=== PATIENT | female | born 1960 | race Caucasian/White ===

== ENCOUNTER 2016-11-01 07:46 | Outpatient (CLI) | payer OTHER | END 2016-11-01 07:47 | disposition home or self-care (01) | DX: Z00.00 Encounter for general adult medical examination without abnormal findings (principal); R25.2 Cramp and spasm ==

== ENCOUNTER 2017-01-16 10:13 | Outpatient (CLI) | payer OTHER ==
--- NOTE | 2017-01-21 17:05 | Mammography Report ---
DIGITAL SCREENING MAMMOGRAM: 01/16/2017 CLINICAL INDICATION: A 56-year-old for screening. COMPARISON: 09/2015, 07/2014, 04/2013. TECHNIQUE: Routine CC and MLO projections as well as bilateral laterally exaggerated craniocaudal vi ews were obtained of the breasts. The breasts demonstrate heterogeneously dense fibroglandular parenchyma bilaterally. Coarse and punc de jesus, typically benign calcifications are present. No suspicious masses, clustered microcalcificatio ns, or regions of architectural distortion are identified. IMPRESSION: BENIGN FINDINGS. RECOMMENDATION: ROUTINE ANNUAL SCREENING UNLESS OTHERWISE CLINICALLY INDICATED. BIRADS CATEGORY: 2, BENIGN FINDINGS. STANDARD QUALIFYING STATEMENTS 1. This examination was reviewed with the aid of Computed-Aided Detection (CAD). 2. A negative or benign imaging report should not delay biopsy if clinically suspicious findings are present. Consider surgical consultation if warranted. More than 5% of cancers are not identified b y imaging. 3. Dense breasts may obscure an underlying neoplasm. JOB #: [id number] EXT JOB #:[id number]
== END 2017-01-16 10:14 | disposition home or self-care (01) ==
LOC: DI.S 10:13
PROVIDERS: ATTEND Nurse Practitioner Obstetrics & Gynecology
DX: Z12.31 Encounter for screening mammogram for malignant neoplasm of breast (principal)
CPT/HCPCS: 77067

== ENCOUNTER 2021-08-16 12:59 | Outpatient (CLI) | payer OTHER ==
--- NOTE | 2021-08-20 11:12 | Mammography Report ---
BILATERAL DIGITAL SCREENING MAMMOGRAM 3D/2D: 08/16/2021 CLINICAL: Routine screening. Comparison is made to exams dated: 01/16/2017 mammogram, 10/11/2015 mammogram - [facility], 08/10/2014 mammogram, and 05/06/2013 mammogram - [facility]. The tissue of both breasts is predominantly fatty. No significant masses, calcifications, or other findings are seen in either breast. There has been no significant interval change. IMPRESSION: NEGATIVE There is no mammographic evidence of malignancy. A 1 year screening mammogram is recommended. This exam was interpreted at Station ID: [id number]. NOTE: For mammograms, a report in lay terms will be sent to the patient. Approximately 15% of breast malignancies will not be visualized mammographically. In the management of a palpable breast mass, a negative mammogram must not discourage biopsy of a clinically suspicious lesion. Electronically Signed By: Goldy Phillips M.D., jr/susy:08/16/2021 15:01:59 ACR BI-RADS Category 1: Negative 3341F PARENCHYMAL PATTERN: (F) - The breast(s) demonstrate(s) diffuse fatty replacement. BI-RADS CATEGORY: (1) - 1 RECOMMENDATION: (ANNUAL) - Recommend routine annual screening mammography. [id number] 1 year screening LATERALITY: (B)
== END 2021-08-16 13:00 | disposition home or self-care (01) ==
LOC: DI 12:59
PROVIDERS: ATTEND Internal Medicine
DX: Z12.31 Encounter for screening mammogram for malignant neoplasm of breast (principal)

== ENCOUNTER 2021-12-05 07:12 | Outpatient (CLI) | payer OTHER ==
--- NOTE | 2021-12-05 13:59 | MRI Report ---
PROCEDURE: MRI cervical spine without contrast INDICATIONS: NECK PAIN, RT ARM PAIN, HX FORAMINAL STENOSIS TECHNIQUE: Noncontrast sagittal T1 spin echo and T2 fast spin echo, sagittal STIR, foraminal oblique sagittal T2 fast spin echo, and axial gradient echo or T2 fast spin echo through the cervical spine. COMPARISON: None. FINDINGS: Image quality: Excellent. Alignment and Curvature: There is normal bony alignment. Bone Marrow: Marrow demonstrates normal overall signal. Spinal Cord: Visualized spinal cord has normal size and signal. No cerebellar tonsillar herniation. Paraspinous Soft Tissues: No paravertebral masses. Prevertebral soft tissues are normal in thicknes s. C2-C3: Disc height is maintained. Small posterior disc osteophyte complex present without central or foraminal stenosis. C3-C4: Space narrowing with hypertrophic uncovertebral joints present. Mild left and no right linus inal stenosis. No central stenosis. C4-C5: Posterior disc osteophyte complex results in mild central stenosis. No foraminal stenosis. C5-C6: Space narrowing with posterior disc osteophyte complex and hypertrophic uncovertebral joints results in moderate right and no left foraminal stenosis. Mild to moderate central stenosis present. C6-C7: Disc space narrowing with posterior disc osteophyte complex and hypertrophic uncovertebral koki ints results in moderate left and no right foraminal stenosis. Mild central stenosis present. C7-T1: Disc space and narrowing present. Hypertrophic uncovertebral joints results in mild right and no left foraminal stenosis. No central stenosis. IMPRESSION: Multilevel degenerative disc disease and arthropathy results in varying degrees of central and forami nal stenosis including mild to moderate central stenosis at C5-6 Reviewed by: Michael Rahman MD on 12/05/2021 12:58 PM AKDT Approved by: Michael Rahman MD on 12/05/2021 12:58 PM AKDT Station ID: [id number]
== END 2021-12-05 07:13 | disposition home or self-care (01) ==
LOC: DI 07:12
PROVIDERS: ATTEND Internal Medicine
DX: M47.812 Spondylosis without myelopathy or radiculopathy, cervical region (principal); M50.322 Other cervical disc degeneration at C5-C6 level; M48.02 Spinal stenosis, cervical region

== ENCOUNTER 2022-01-02 10:24 | Outpatient (CLI) | payer OTHER ==
--- NOTE | 2022-01-02 12:28 | MRI Report ---
PROCEDURE: Shoulder RT W/O INDICATIONS: RIGHT SHOULDER PAIN TECHNIQUE: Noncontrast oblique coronal T2 fast spin echo with fat saturation, oblique sagittal T1 spin echo and T2 fast spin echo with fat saturation, axial T1 spin echo and T2 fast spin echo with fat saturation t hrough the shoulder. COMPARISON: None. FINDINGS: Image quality: Images are degraded by motion artifact. Supraspinatus: Mild to moderate tendinopathy with small, partial articular surface tear. Infraspinatus: Mild tendinopathy with interstitial tear. Subscapularis: Mild tendinopathy with interstitial tear. Teres minor: No evidence of tear. Labrum: No evidence of tear. Biceps tendon: No evidence of subluxation or tear. Acromioclavicular joint: Normal alignment. Mild arthrosis. Muscle: Grade 2 atrophy of the supraspinatus. Bones: Small focus of subchondral edema in the humeral head. No evidence of fracture or large contusi on. Miscellaneous: No glenohumeral joint effusion. Trace subacromial/subdeltoid bursal fluid. No intra-articular bodies. Intact coracoclavicular ligament. IMPRESSION: 1. Yjuz-ax-veitpbfu supraspinatus tendinopathy with small, partial articular surface tear. 2. Mild infraspinatus and subscapularis tendinopathy with interstitial tears. 3. Mild AC joint arthrosis. 4. Mild subacromial/subdeltoid bursitis. 5. Grade 2 atrophy of the supraspinatus. Reviewed by: Redd Valles MD on 01/02/2022 12:27 PM PDT Approved by: Redd Valles MD on 01/02/2022 12:27 PM PDT Station ID: [id number]
== END 2022-01-02 10:25 | disposition home or self-care (01) ==
LOC: DI 10:24
PROVIDERS: ATTEND Internal Medicine
DX: M75.111 Incomplete rotator cuff tear or rupture of right shoulder, not specified as traumatic (principal); M19.011 Primary osteoarthritis, right shoulder; M75.51 Bursitis of right shoulder; M62.511 Muscle wasting and atrophy, not elsewhere classified, right shoulder

== ENCOUNTER 2024-01-02 15:57 | Outpatient (CLI) | payer MEDICARE, OTHER ==
--- NOTE | 2024-01-02 18:11 | XRAY Report ---
PROCEDURE: Ribs w/PA Chest 3+V LT INDICATIONS: LEFT SIDED RIB PAIN TECHNIQUE: 2 views of the ribs were acquired, along with a single view chest. COMPARISON: None. FINDINGS: Surgical changes and devices: None. Bones and chest wall: No fractures or dislocations. No suspicious bony lesions. Overlying soft tis sues appear unremarkable. Lungs and pleura: No pleural effusions or pneumothorax. Lungs appear clear. Mediastinum: Mediastinal contours appear normal. Heart size is normal. IMPRESSION: No displaced left rib fracture. Reviewed by: Misa Saucedo MD on 01/02/2024 6:09 PM PDT Approved by: Misa Saucedo MD on 01/02/2024 6:09 PM PDT Station ID: [id number]
== END 2024-01-02 15:58 | disposition home or self-care (01) ==
LOC: DI 15:57
PROVIDERS: ATTEND Emergency Medicine
DX: R07.81 Pleurodynia (principal); R07.1 Chest pain on breathing

== ENCOUNTER 2024-01-30 11:29 | Outpatient (CLI) | payer MEDICARE, OTHER ==
--- NOTE | 2024-01-30 13:18 | XRAY Report ---
PROCEDURE: Hip w/Pelvis 2-3V LT INDICATIONS: LEFT HIP PAIN TECHNIQUE: 2 views of the hip were acquired. COMPARISON: None. FINDINGS: Bones: No fractures or dislocations. Qpms-sk-eheubmiw bilateral hip joint osteoarthritic changes are seen. No evidence of avascular necrosis of femoral head. Moderate degenerative disc disease in visua lized lower lumbar spine is seen. Levoscoliosis in visualized lower lumbar spine is also. No suspicio us bony lesions. Soft tissues: No suspicious soft tissue calcifications or masses. IMPRESSION: No acute bony abnormality. Mild to moderate bilateral hip joint osteophyte is. No evidence of avascul ar necrosis. Degenerative disc disease in lower lumbar spine. Levoscoliosis of the visualized lower l umbar spine. Reviewed by: Donta Lorenzo MD on 01/30/2024 1:17 PM PDT Approved by: Donta Lorenzo MD on 01/30/2024 1:17 PM PDT Station ID: [id number]
== END 2024-01-30 11:30 | disposition home or self-care (01) ==
LOC: DI 11:29
PROVIDERS: ATTEND Internal Medicine
DX: M16.0 Bilateral primary osteoarthritis of hip (principal); M51.36 Other intervertebral disc degeneration, lumbar region

== ENCOUNTER 2024-02-04 15:20 | Outpatient (CLI) | payer MEDICARE, OTHER ==
[2024-02-04 15:56] LABS: CREATININE 0.7 mg/dL (0.6-1.3)
--- NOTE | 2024-02-04 17:13 | CT Report ---
PROCEDURE: Chest W INDICATIONS: RIB PAIN CONTRAST: Omni 300 100ml TECHNIQUE: After the administration of intravenous contrast, a CT scan of the chest was performed. Images were recorded and evaluated at appropriate window settings. Reformats: axial MIP of the chest, coronal and sagittal. For radiation dose reduction, the following was used: automated exposure control, adjustme nt of mA and/or kV according to patient size. COMPARISON: None. FINDINGS: Image quality: Diagnostic. Chest wall and lower neck: No thyroid nodule which requires sonographic follow up. No breast mass. No axillary or supraclavicular adenopathy by size. Lungs and pleura: No consolidation. No pleural effusions. No pneumothorax. No suspicious pulmonary n odules which require follow up. Mediastinum: Heart size is normal. No pericardial effusion. No large vessel abnormality. No mediastin al adenopathy by size criteria. Bones: No aggressive osseous abnormality. Upper Abdomen: Unremarkable. IMPRESSION: 1. No acute airspace opacities or nodules which require follow-up. 2. No suspicious rib lesions or displaced rib fractures to explain rib pain. Reviewed by: Ashley Titus MD on 02/04/2024 5:11 PM PDT Approved by: Ashley Titus MD on 02/04/2024 5:11 PM PDT Station ID: [id number]
[2024-02-04] MEDS: iohexoL-300 100 ML VIAL IVP ONE (17:27)
== END 2024-02-04 15:21 | disposition home or self-care (01) ==
LOC: LAB 15:20
PROVIDERS: ATTEND Internal Medicine
DX: R07.81 Pleurodynia (principal); Z79.899 Other long term (current) drug therapy
CPT/HCPCS: 36415; 82565

== ENCOUNTER 2024-03-16 13:11 | Outpatient (CLI) | payer MEDICARE, OTHER ==
--- NOTE | 2024-03-18 09:12 | Mammography Report ---
BILATERAL DIGITAL SCREENING MAMMOGRAM 3D/2D WITH EXAGGERATED CC: 03/16/2024 CLINICAL: Routine screening. Comparison is made to exams dated: 08/16/2021 mammogram, 01/16/2017 mammogram, and 10/11/2015 mammogra m - [facility]. Both breasts are extremely dense, which lowers the sensitivity of mammography (category d />75% gland ular tissue). There is an irregular focal asymmetry in the right breast at 7 o'clock posterior depth. No other significant masses, calcifications, or other findings are seen in either breast. IMPRESSION: INCOMPLETE: NEEDS ADDITIONAL IMAGING EVALUATION The irregular focal asymmetry in the right breast is indeterminate. Additional views with possible u ltrasound are recommended. Based on the Tyrer Cuzick model (a risk assessment model) the patient's lifetime risk is 16.7% and he r 10 year risk is 8.2%. According to the ACR, ACS, and NCCN guidelines, an annual breast MRI exam leona ng with mammogram is recommended if the patient's lifetime risk is 20% or greater. This exam was interpreted at Station ID: [id number]. NOTE: For mammograms, a report in lay terms will be sent to the patient. Approximately 15% of breast malignancies will not be visualized mammographically. In the management of a palpable breast mass, a negative mammogram must not discourage biopsy of a clinically suspicious lesion. Electronically Signed By: Abraham farris/beccarad:03/16/2024 16:21:05 ACR BI-RADS Category 0: Incomplete 3340F PARENCHYMAL PATTERN: (VD) - The breast(s) demonstrate(s) extremely dense parenchyma, limiting the sen sitivity of mammography. BI-RADS CATEGORY: (0) - 0 Mammo and [place] [id number] Immediate follow-up LATERALITY: (R)
== END 2024-03-16 13:12 | disposition home or self-care (01) ==
LOC: DI 13:11
PROVIDERS: ATTEND Internal Medicine
DX: Z12.31 Encounter for screening mammogram for malignant neoplasm of breast (principal); R92.343 Mammographic extreme density, bilateral breasts; R92.8 Other abnormal and inconclusive findings on diagnostic imaging of breast

== ENCOUNTER 2024-04-01 13:32 | Outpatient (CLI) | payer MEDICARE, OTHER ==
--- NOTE | 2024-04-02 10:52 | Mammography Report ---
UNILATERAL RIGHT DIGITAL DIAGNOSTIC MAMMOGRAM 3D/2D WITH SPOT COMPRESSION: 04/01/2024 CLINICAL: Patient returns today to evaluate a focal asymmetry in the right breast. Comparison is made to exams dated: 03/16/2024 mammogram, 08/16/2021 mammogram, 01/16/2017 mammogram, mammogram - [facility], and 08/10/2014 mammogram - [facility] . The right breast is extremely dense, which lowers the sensitivity of mammography (category d />75% gl andular tissue). There is an irregular focal asymmetry in the right breast at 7 o'clock posterior depth. This is les s prominent and decreased in size and is not confirmed in additional views. No other significant masses or calcifications are seen in the breast. IMPRESSION: INCOMPLETE: NEEDS ADDITIONAL IMAGING EVALUATION The irregular focal asymmetry in the right breast resembles fibroglandular tissue and is indeterminat e. An ultrasound is recommended for further evaluation and is scheduled to immediately follow this e xamination. Based on the Tyrer Cuzick model (a risk assessment model) the patient's lifetime risk is 16.7% and he r 10 year risk is 8.2%. According to the ACR, ACS, and NCCN guidelines, an annual breast MRI exam leona ng with mammogram is recommended if the patient's lifetime risk is 20% or greater. This exam was interpreted at Station ID: [id number]. NOTE: For mammograms, a report in lay terms will be sent to the patient. Approximately 15% of breast malignancies will not be visualized mammographically. In the management of a palpable breast mass, a negative mammogram must not discourage biopsy of a clinically suspicious lesion. Electronically Signed By: Enoc Joshua M.D. aty/:04/01/2024 14:50:53 ACR BI-RADS Category 0: Incomplete 3340F PARENCHYMAL PATTERN: (VD) - The breast(s) demonstrate(s) extremely dense parenchyma, limiting the sen sitivity of mammography. BI-RADS CATEGORY: (0) - 0 Ultrasound [id number] Immediate follow-up LATERALITY: (R)
--- NOTE | 2024-04-02 10:53 | Ultrasound Report ---
LIMITED ULTRASOUND OF RIGHT BREAST: 04/01/2024 CLINICAL: Patient returns today to evaluate a focal asymmetry in the right breast. Comparison is made to exams dated: 04/01/2024 mammogram, 03/16/2024 mammogram, 08/16/2021 mammogram, mammogram, 10/11/2015 mammogram - [facility], and 08/10/2014 mammogram - [facility]. Real-time ultrasound of the right breast 7-9 o'clock region was performed. Morales scale images of the real-time examination were reviewed. No significant abnormalities were seen sonographically in the right breast. IMPRESSION: NEGATIVE There is no sonographic evidence of malignancy. There is no abnormality seen in the right breast to correspond with the mammography finding which lik lore represents normal dense fibroglandular tissue. A 1 year screening mammogram is recommended. Findings and recommendations were conveyed to the patient during today's evaluation. This exam was interpreted at Station ID: [id number]. Electronically Signed By: Enoc Joshua M.D. aty/:04/01/2024 14:58:21 Ultrasound BI-RADS: 1 Negative BI-RADS CATEGORY: (1) - 1 RECOMMENDATION: (ANNUAL) - Recommend routine annual screening mammography. [id number] 1 year screening LATERALITY: (B)
== END 2024-04-01 13:33 | disposition home or self-care (01) ==
LOC: DI 13:32
PROVIDERS: ATTEND Internal Medicine
DX: R92.8 Other abnormal and inconclusive findings on diagnostic imaging of breast (principal); R92.341 Mammographic extreme density, right breast